=== PATIENT | male | born 1960 | race Caucasian/White ===

== ENCOUNTER → 2017-04-05 | Outpatient (CLI) | payer BC ==
[~2017-04-05] MED LIST: ATOR20TA59 PO; CELE-85 PO; GABA-354 PO; ICOS1CAP PO; IOHEXOL 350 MG/ML 100ml INJECTION ONE; L.AC1CAP6 PO; LEVO500T88 PO; METR-115 PO; NORMAL SALINE 100 ML ONE; OMEP40CA52 PO; RANI300T7 PO; SALINE FLUSH *Sterile Field* 10ml SYRINGE ONE; SILD100T PO; TRAM-277 PO
--- NOTE | 2017-04-05 11:46 | DI ---
EXAM: CTA abdomen pelvis with and without contrast. LOCATION OF DICTATION: [facility] HISTORY: ITS.REASON: R10.9 ABD PAIN; R10.13 EPIGASTRIC PAIN; R63.4 ABNORMAL WEIGHT LOS . History of ruptured colon and also colitis. COMPARISON: No prior studies are available for comparison TECHNIQUE: CT images were obtained of the abdomen and pelvis utilizing intravenous contrast. Coronal and sagittal reformations were utilized. MIP and 3-D reformatted images were also utilized. Automated Exposure Control and Iterative Reconstruction dose reducing techniques were utilized. FINDINGS: CT ANGIOGRAM: There is no evidence for abdominal aortic aneurysm or dissection. There is mild to moderate calcific atherosclerotic disease of the aorta and iliac arteries. The iliac arteries widely patent throughout. The superior mesenteric artery is widely patent throughout. The right and left renal arteries are both widely patent without significant stenosis identified. There is minimal calcific atherosclerotic disease noted about the origins of both renal arteries. The inferior mesenteric artery is widely patent and unremarkable. There is approximately 25% luminal narrowing about the right common iliac artery. There is approximately 25-50% luminal narrowing about the proximal right internal iliac artery. The bilateral external iliac arteries are widely patent. There is mild atherosclerotic plaque demonstrate about the common femoral arteries without stenosis. The visualized portions of the superficial femoral arteries are patent. There is mild approximately 25% luminal narrowing about the proximal left superficial femoral artery. There is approximately 25-50% luminal narrowing demonstrated about the proximal aspect of the left deep femoral artery. CT ABDOMEN VISCERA LUNG BASES: There is bilateral dependent atelectasis. LIVER: The liver is enlarged measuring 21 cm craniocaudally. There are several calcified granulomas within the liver. SPLEEN: The spleen is mildly enlarged measuring 13.3 cm craniocaudally. There is calcified splenic granulomas noted. GALLBLADDER: The gallbladder is surgically absent. PANCREAS: Unremarkable. ADRENAL GLANDS: Unremarkable. KIDNEYS: Unremarkable. AORTA: Mild to moderate calcific atherosclerotic disease of the aorta and iliac arteries. LYMPH NODES: Unremarkable. STOMACH BOWEL LOOPS: The bowel loops are normal caliber. There is no evidence for bowel obstruction or free intraperitoneal air. The appendix is surgically absent. There is diverticulosis without evidence for diverticulitis. Surgical anastomosis demonstrated about the sigmoid colon suggesting previous partial colectomy. PERITONEAL CAVITY: There is no abdominal or pelvic inflammatory mass or ascites. CT PELVIS VISCERA URINARY BLADDER: Unremarkable. PROSTATE: Unremarkable. OSSEOUS STRUCTURES: There is mild spondylosis of the thoracolumbar spine. No suspicious or destructive osseous lesions. IMPRESSION: 1. Mild to moderate calcific atherosclerotic disease demonstrated within the abdominal aorta, iliac, and femoral arteries without evidence for high-grade stenosis. There is approximately 25% luminal narrowing involving the proximal right common iliac artery, 25-50% luminal narrowing about the proximal right internal iliac artery, 25% luminal narrowing about the proximal left superficial femoral artery, and approximately 25-50% luminal narrowing about the proximal left deep femoral artery. 2. The liver is mildly enlarged. The spleen is mildly enlarged. There are calcified granulomas in both the liver and spleen suggestive chronic inactive granulomatous disease. 3. The gallbladder and appendix are surgically absent. Partial colonic bowel resection with anastomosis about the sigmoid colon. 4. Diverticulosis without diverticulitis. .
== END ==
LOC: IMA 09:07
PROVIDERS: ATTEND Internal Medicine Gastroenterology
DX: I70.0 Atherosclerosis of aorta (principal); I70.8 Atherosclerosis of other arteries; K57.30 Diverticulosis of large intestine without perforation or abscess without bleeding; R16.2 Hepatomegaly with splenomegaly, not elsewhere classified; Z90.49 Acquired absence of other specified parts of digestive tract; Z98.0 Intestinal bypass and anastomosis status; R10.13 Epigastric pain; R63.4 Abnormal weight loss
CPT/HCPCS: 74174; J7050; Q9967